=== PATIENT | female | born 1970 | race Caucasian/White ===

== ENCOUNTER 2018-09-28 10:09 | Emergency (ER) | payer OTHER ==
[2018-09-28 10:27] VITALS: BP 114/66; PULSE 92; TEMP 97.9; BMI 31.2
[2018-09-28] MEDS ORDERED: ACETAMINOPHEN 325 MG TABLET (FP) PO ONE (11:08)
[2018-09-28] MEDS ORDERED: ACETAMINOPHEN 325 MG TABLET (FP) ONE (11:16)
--- NOTE | 2018-09-28 11:25 | PDOC ---
History of Present Illness - General Chief Complaint: Pain, Acute Stated Complaint: RT SHOULDER PAIN Time Seen by Provider: 09/28/18 11:08 History Source: Patient Exam Limitations: No Limitations (R shoulder pain X 3 days, no trauma) - History of Present Illness Associated Symptoms: reports: denies symptoms Past History - Travel Close contact w/someone who was outside of country & ill: No - Past Medical History Allergies/Adverse Reactions: Allergies Allergy/AdvReac Type Severity Reaction Status Date / Time No Known Drug Allergies Allergy Verified 09/28/18 10:46 Home Medications: Ambulatory Orders Omeprazole [Prilosec (RX)] 40 mg PO DAILY 05/25/15 Anemia: No Asthma: No Cancer: No Cardiac Disorders: No CVA: No COPD: No CHF: No Dementia: No Diabetes: No GI Disorders: No Disorders: No HTN: No Hypercholesterolemia: No Liver Disease: Yes (fatty liver) Seizures: No Thyroid Disease: No - Surgical History Abdominal Surgery: Yes Cholecystectomy: Yes - Immunization History Immunization Up to Date: Yes - Suicide/Smoking/Psychosocial Hx Smoking Status: No Smoking History: Never smoked Number of Cigarettes Smoked Daily: 0 Cigars Per Day: 0 Hx Alcohol Use: No Drug/Substance Use Hx: No Substance Use Type: None Hx Substance Use Treatment: No Review of Systems - Review of Systems Able to Perform ROS?: No Is the patient limited [place] proficient: No Constitutional: No: Chills, Fever Respiratory: No: Shortness of Breath Cardiac (ROS): No: Chest Pain, Lightheadedness, Palpitations, Syncope, Chest Tightness ABD/GI: No: Abdominal Distended Musculoskeletal: Yes: Joint Pain (Right shoulder). No: Back Pain, Joint Swelling, Muscle Pain Neurological: No: Headache, Numbness, Paresthesia, Tingling, Tremors, Weakness, Unsteady Gait, Dizziness *Physical Exam - Vital Signs Last Vital Signs Temp Pulse Resp BP Pulse Ox 97.9 F 92 H 18 114/66 99 09/28/18 10:24 09/28/18 10:24 09/28/18 10:24 09/28/18 10:24 09/28/18 10:24 - Physical Exam General Appearance: Yes: Nourished HEENT: positive: EOMI, PIPPA Respiratory/Chest: positive: Lungs Clear, Normal Breath Sounds Cardiovascular: positive: Regular Rhythm, Regular Rate, S1, S2 Musculoskeletal: positive: Normal Inspection Extremity: positive: Normal Capillary Refill, Normal Inspection, Normal Range of Motion (mild pain on ROM of R shoulder, good strenght, no weakness) Integumentary: positive: Normal Color Neurologic: positive: bearing maker II-XII NML intact, Fully Oriented, Alert ED Treatment Course - RADIOLOGY Radiology Studies Ordered: Category Date Time Status SHOULDER-RIGHT [RAD] Stat Radiology 09/28/18 11:08 Ordered - Medications Given in the ED: ED Medications Discontinued Medications Generic Name Dose Route Start Last Admin Trade Name Emmy PRN Reason Stop Dose Admin Acetaminophen 650 mg 09/28/18 11:08 09/28/18 11:18 Tylenol - PO 09/28/18 11:09 650 mg ONCE ONE Administration Medical Decision Making - Medical Decision Making 09/28/18 11:23 R shoulder pain X 3 days, pt is L hand dominant Reports heavy lifting at work denies any fall, CP or SOB mild pain on extension otherwise exam wnl xray ordered pain control ortho f/u 09/28/18 12:46 xray neg OTC nsaids for pain ortho f/u *DC/Admit/Observation/Transfer Diagnosis at time of Disposition: Shoulder pain, left Qualifiers: Chronicity: acute Qualified Code(s): M25.512 - Pain in left shoulder - Discharge Dispostion Disposition: HOME Condition at time of disposition: Stable Decision to Admit order: No - Referrals Referrals: Chai Howard MD [Primary Care Provider] - Caden Pisano MD [Staff Physician] - - Patient Instructions Printed Discharge Instructions: DI for Shoulder Pain Additional Instructions: Your xray was negative for any fractures or dislocation Please follow up orthopedics for further evaluation Take medication as prescribed REturn to the ER if worsening symptoms occurs - Post Discharge Activity
== END 2018-09-28 12:51 | disposition home or self-care (01) ==
LOC: JERFT 10:09
DX: M25.511 Pain in right shoulder (principal); X50.0XXA Overexertion from strenuous movement or load, initial encounter; Y93.89 Activity, other specified; Y92.512 Supermarket, store or market as the place of occurrence of the external cause; Y99.0 Civilian activity done for income or pay
CPT/HCPCS: 73030-TC-RT-FY; 99281-25

== ENCOUNTER 2024-01-26 05:10 | Day surgery (SDC) | payer OTHER ==
[2024-01-22 11:48] VITALS: BMI 32.4
[2024-01-26 10:19] VITALS: TEMP 97.6
[2024-01-26 11:11] VITALS: BP 105/58; PULSE 67; RESP 19
== END 2024-01-26 11:11 | disposition home or self-care (01) ==
LOC: JASU-ENDO 05:10
PROVIDERS: ATTEND Internal Medicine Gastroenterology
PROC: 0DB68ZX Excision of Stomach, Via Natural or Artificial Opening Endoscopic, Diagnostic (ICD-10-PCS; 2024-01-26)
PROC: 0DB38ZX Excision of Lower Esophagus, Via Natural or Artificial Opening Endoscopic, Diagnostic (ICD-10-PCS; principal; 2024-01-26 09:45)
DX: K21.00 Gastro-esophageal reflux disease with esophagitis, without bleeding (principal); K44.9 Diaphragmatic hernia without obstruction or gangrene; K22.2 Esophageal obstruction; K29.50 Unspecified chronic gastritis without bleeding
CPT/HCPCS: 81025; 82962; 88305-TC; 88342-TC

== ENCOUNTER 2024-02-11 04:50 | Day surgery (SDC) | payer OTHER ==
[2024-02-10 10:09] VITALS: BMI 32.2
[2024-02-11 11:52] VITALS: TEMP 98
[2024-02-11 12:08] VITALS: RESP 18
[2024-02-11 12:37] VITALS: BP 117/78; PULSE 84
== END 2024-02-11 13:02 | disposition home or self-care (01) ==
LOC: JASU-ENDO 04:50
PROVIDERS: ATTEND Internal Medicine Gastroenterology
PROC: 0DJD8ZZ Inspection of Lower Intestinal Tract, Via Natural or Artificial Opening Endoscopic (ICD-10-PCS; principal; 2024-02-11 11:15)
DX: Z12.11 Encounter for screening for malignant neoplasm of colon (principal); K64.8 Other hemorrhoids
CPT/HCPCS: 81025; 82962

== ENCOUNTER 2024-03-29 05:30 | Day surgery (SDC) | payer OTHER ==
[2024-03-28 11:38] VITALS: BMI 32.4
[2024-03-29 10:30] VITALS: TEMP 97.9
[2024-03-29 11:04] VITALS: BP 108/71; PULSE 66; RESP 18
== END 2024-03-29 11:31 | disposition home or self-care (01) ==
LOC: JASU-ENDO 05:30
PROVIDERS: ATTEND Internal Medicine Gastroenterology
PROC: 0DB68ZX Excision of Stomach, Via Natural or Artificial Opening Endoscopic, Diagnostic (ICD-10-PCS; principal; 2024-03-29 09:30)
DX: K22.2 Esophageal obstruction (principal); K21.00 Gastro-esophageal reflux disease with esophagitis, without bleeding; K29.50 Unspecified chronic gastritis without bleeding; K31.7 Polyp of stomach and duodenum
CPT/HCPCS: 81025; 82962; 88305-TC; 88342-TC

== ENCOUNTER 2024-08-08 05:31 | Day surgery (SDC) | payer OTHER ==
[2024-08-08 07:21] VITALS: RESP 18
[2024-08-08] MEDS ORDERED: BUPIVACAINE HCL/PF 0.25% (2.5MG/ML) 10 ML VIAL ONE (08:27)
[2024-08-08] MEDS ORDERED: HEPARIN NA (PORCINE) 5,000 UNITS/ML 1ML VIAL ONE (08:27)
[2024-08-08] MEDS ORDERED: cefOXitin SODIUM 2 GM VIAL (RESTRICTED TO ID) IVPB ONE (08:58)
[2024-08-08] MEDS ORDERED: PROPOFOL 20 ML ONE ×3 (09:13→13:42)
[2024-08-08] MEDS ORDERED: DEXAMETHASONE SOD PHOSPHATE 4 MG/1 ML VIAL ONE ×2 (09:13→11:20)
[2024-08-08] MEDS ORDERED: ONDANSETRON 4 MG/2 ML VIAL ONE ×2 (09:13→11:20)
[2024-08-08] MEDS ORDERED: SUCCINYLCHOLINE CHLORIDE 200 MG/10 ML SYRINGE ONE (09:14)
[2024-08-08] MEDS ORDERED: ROCURONIUM BROMIDE 50 MG/5 ML SYRINGE ONE ×3 (09:14→12:42)
[2024-08-08] MEDS ORDERED: MIDAZOLAM HCL 2 MG/2 ML SINGLE DOSE VIAL ONE (09:14)
[2024-08-08] MEDS: cefOXitin SODIUM 2 GM VIAL (RESTRICTED TO ID) IVPB ONE (10:14)
[2024-08-08] MEDS: BUPIVACAINE HCL/PF 0.25% (2.5MG/ML) 10 ML VIAL IJ ONE ×2 (10:16)
[2024-08-08] MEDS ORDERED: ONDANSETRON 4 MG/2 ML VIAL IVPUSH PRN (13:55)
[2024-08-08] MEDS: KETOROLAC TROMETHAMINE 30 MG/1 ML VIAL IVPUSH ONE (14:53)
[2024-08-08] MEDS: ACETAMINOPHEN 1000 MG/100 ML BAG IVPB ONE (14:53)
[2024-08-08] MEDS: ACETAMINOPHEN INJECTION 100 ML ONE (14:53)
[2024-08-08] MEDS ORDERED: KETOROLAC TROMETHAMINE 30 MG/1 ML VIAL ONE (14:53)
[2024-08-08] MEDS: METOCLOPRAMIDE HCL INJECTION 10 MG/2 ML VIAL IVPUSH SCH (15:52)
[2024-08-08] MEDS: oxyCODONE HCL 5 MG TABLET PO PRN (18:26)
[2024-08-08] MEDS: ONDANSETRON 4 MG/2 ML VIAL IVPUSH SCH (18:29)
[2024-08-08] MEDS: LACTATED RINGERS SOLUTION 1,000 ML IV SCH (20:29)
[2024-08-08] MEDS: ATORVASTATIN CA 10 MG TABLET (FP) PO SCH (22:03)
[2024-08-09] MEDS: SODIUM CHLORIDE 1,000 ML IV ONE (04:45)
[2024-08-09 05:22] LABS: HEMATOCRIT 38.4 % (32.4-45.2); HEMOGLOBIN 13.2 GM/dL (10.7-15.3); MCH 30.1 pg (25.7-33.7); MCHC 34.2 g/dl (32.0-36.0); MEAN PLT VOLUME 8.6 fl (7.5-11.1); PLATELET COUNT 256 10^3/uL (134-434); RBC 4.37 M/mm3 (3.60-5.2); RDW 13.5 % (11.6-15.6); WHITE BLOOD COUNT 10.7 K/mm3 (4.0-10.0)
[2024-08-09 05:41] LABS: POTASSIUM 4.2 mmol/L (3.5-5.1)
[2024-08-09 05:43] LABS: CALCIUM 8.5 mg/dL (8.5-10.1)
[2024-08-09 05:44] LABS: ALBUMIN 3.3 g/dl (3.4-5.0); BLOOD UREA NITROGEN 11.1 mg/dL (7-18)
[2024-08-09 05:47] LABS: CREATININE 0.7 mg/dL (0.55-1.3)
[2024-08-09 05:49] LABS: BILIRUBIN,TOTAL 0.6 mg/dL (0.2-1); TOT PROT 6.3 g/dl (6.4-8.2)
[2024-08-09] MEDS: metFORMIN HCL 500 MG TABLET (FP) PO SCH (06:50)
[2024-08-09 08:49] LABS: BASO % 0.4 % (0-2.0); EOS % 0.3 % (0-4.5); HEMATOCRIT 37.8 % (32.4-45.2); HEMOGLOBIN 12.9 GM/dL (10.7-15.3); LYMPH % 23.3 % (8-40); MCH 30.1 pg (25.7-33.7); MCHC 34.1 g/dl (32.0-36.0); MEAN CELL VOLUME 88.3 fl (80-96); MEAN PLT VOLUME 8.6 fl (7.5-11.1); MONO % 4.8 % (3.8-10.2); NEUT % 71.2 % (42.8-82.8); PLATELET COUNT 247 10^3/uL (134-434); RBC 4.28 M/mm3 (3.60-5.2); RDW 12.9 % (11.6-15.6); WHITE BLOOD COUNT 10.3 K/mm3 (4.0-10.0)
[2024-08-09] MEDS: LACTATED RINGERS SOLUTION 1,000 ML/1,000 ML INFUS.BAG IV SCH (09:03)
[2024-08-09] MEDS: PANTOPRAZOLE 40 MG TABLET PO SCH (10:12)
[2024-08-09] MEDS: SODIUM CHLORIDE 1,000 ML IV SCH (17:05)
[2024-08-09] MEDS: ACETAMINOPHEN 1000 MG/100 ML BAG IVPB ONE (17:06)
[2024-08-09 17:11] LABS: ABSOLUTE IMMATURE GRANULOCYTES 0.03 x10^3/uL (0.0-0.031); BASOPHILS # 0.06 x10^3/uL (0.01-0.08); EOSINOPHIL % 0.7 % (0.7-5.8); EOSINOPHILS # 0.07 x10^3/uL (0.04-0.36); HEMATOCRIT 38.2 % (34.1-44.9); HEMOGLOBIN 12.7 g/dL (11.2-15.7); MCHC 33.2 g/dl (32.2-35.5); MEAN PLT VOLUME 10.2 fl (9.4-12.3); MONOCYTE # 0.55 x10^3/uL (0.24-0.86); MONOCYTE % 5.2 % (4.7-12.5); PLATELET COUNT # 219 x10^3/uL (182-369); RDW 13.2 % (12.3-16.6)
[2024-08-09] MEDS: INSULIN ASPART SLIDING SCALE (NOVOLOG) 1 VIAL SQ SCH (21:27)
[2024-08-09] MEDS ORDERED: ACETAMINOPHEN 500 MG TABLET (FP) PO PRN (23:55)
[2024-08-10 09:14] LABS: ABSOLUTE IMMATURE GRANULOCYTES 0.03 x10^3/uL (0.0-0.031); BASOPHILS # 0.06 x10^3/uL (0.01-0.08); EOSINOPHIL % 0.9 % (0.7-5.8); EOSINOPHILS # 0.09 x10^3/uL (0.04-0.36); HEMATOCRIT 40.2 % (34.1-44.9); HEMOGLOBIN 13.5 g/dL (11.2-15.7); MCHC 33.6 g/dl (32.2-35.5); MEAN CELL VOLUME 87.8 fl (79.4-94.8); MEAN PLT VOLUME 10.7 fl (9.4-12.3); MONOCYTE # 0.53 x10^3/uL (0.24-0.86); PLATELET COUNT # 240 x10^3/uL (182-369); RDW 12.9 % (12.3-16.6)
[2024-08-10 09:30] LABS: POTASSIUM 3.5 mmol/L (3.5-5.1)
[2024-08-10 09:32] LABS: CALCIUM 8.7 mg/dL (8.5-10.1); HEMATOCRIT 40.7 % (34.1-44.9); HEMOGLOBIN 13.7 g/dL (11.2-15.7); MCHC 33.7 g/dl (32.2-35.5); MEAN CELL VOLUME 88.1 fl (79.4-94.8); MEAN PLT VOLUME 10.6 fl (9.4-12.3); PLATELET COUNT # 234 x10^3/uL (182-369); RDW 12.9 % (12.3-16.6)
[2024-08-10 09:33] LABS: ALBUMIN 3.6 g/dl (3.4-5.0); BLOOD UREA NITROGEN 5.1 mg/dL (7-18)
[2024-08-10 09:36] LABS: CREATININE 0.7 mg/dL (0.55-1.3)
[2024-08-10 09:37] LABS: BILIRUBIN,TOTAL 0.8 mg/dL (0.2-1); TOT PROT 6.9 g/dl (6.4-8.2)
[2024-08-10 14:03] VITALS: BP 118/76; PULSE 95; TEMP 98.6
== END 2024-08-10 11:55 | disposition home or self-care (01) ==
LOC: SUATTDRO 05:31 → JASUSAT 05:31 → J8W 17:14 → JASUSAT 08-10 11:55
PROVIDERS: ATTEND Nurse Practitioner Acute Care
PROC: 0BQT4ZZ Repair Diaphragm, Percutaneous Endoscopic Approach (ICD-10-PCS; principal; 2024-08-08 09:00)
PROC: 0DJ08ZZ Inspection of Upper Intestinal Tract, Via Natural or Artificial Opening Endoscopic (ICD-10-PCS; 2024-08-08 09:00)
DX: K44.9 Diaphragmatic hernia without obstruction or gangrene (principal); K21.9 Gastro-esophageal reflux disease without esophagitis; K20.90 Esophagitis, unspecified without bleeding
CPT/HCPCS: 36415; 71045-TC-FY; 80048; 80053; 81025; 82962; 85025; 85027; 86850; 86900; 86901; 94760; J0131; J1644